=== PATIENT | female | born 1995 | race African-American/Black ===

== ENCOUNTER 2017-07-10 18:55 | Emergency (ER) | payer BC ==
[~2017-07-10] VITALS: Ht 167.6 cm; Wt 100.0 kg
[~2017-07-10 18:55] MED LIST: AMOXICILLIN500 MG OR; AMOXICILLIN500 MG PO; MOTRIN400 MG PO; NO MEDS; ZOFRAN4 MG PO
[2017-07-10 19:53] VITALS: BP 139/78
[2017-07-10] MEDS ORDERED: ULTRAM50 M1 PO (20:37)
== END 2017-07-10 20:45 | disposition home or self-care (01) | DRG 563 ==
LOC: ED 18:55
DX: S83.91XA Sprain of unspecified site of right knee, initial encounter (principal); X50.1XXA Overexertion from prolonged static or awkward postures, initial encounter

== ENCOUNTER 2018-06-09 08:28 | Emergency (ER) | payer OTHER ==
[~2018-06-09] VITALS: Ht 162.6 cm; Wt 98.0 kg
[~2018-06-09 08:28] MED LIST changes: +ULTRAM50 M1 PO
[2018-06-09] MEDS ORDERED: BACTRIM DS1 TAB PO (08:45)
[2018-06-09 08:50] VITALS: BP 138/78
== END 2018-06-09 08:54 | disposition home or self-care (01) | DRG 603 ==
LOC: ED 08:28
DX: L02.424 Furuncle of left upper limb (principal)

== ENCOUNTER 2018-06-29 16:36 | Emergency (ER) | payer OTHER ==
[~2018-06-29] VITALS: Ht 165.1 cm; Wt 95.9 kg
[~2018-06-29 16:36] MED LIST changes: +BACTRIM DS1 TAB PO
[2018-06-29 17:44] LABS: HEMATOCRIT 39.3 % (37.0-47.0); HEMOGLOBIN 12.6 g/dl (12.0-16.0); IMMATURE GRANULOCYTES 0.2 % (0.0-5.0); MEAN CELL VOLUME 84.5 fL CALC (80.0-100.0); MEAN CORPUSCULAR HGB 27.1 pG CALC (26.0-32.0); MEAN CORPUSCULAR HGB CONC 32.1 g/L CALC (32.0-36.0); NEUT# 3.57 thou/uL (2.00-7.15); RED BLOOD COUNT 4.65 mill/uL (4.20-5.60); RED CELL DISTRI WIDTH 14.6 % (11.5-15.5)
[2018-06-29 17:55] LABS: BARBITURATES NEGATIVE (NEGATIVE); COCAINE NEGATIVE (NEGATIVE); METHADONE NEGATIVE (NEGATIVE); OXCYCODONE NEGATIVE (NEGATIVE); TETRAHYDROCANNABIONOL NEGATIVE (NEGATIVE); TRICYLIC ANTIDEPRESSANTS NEGATIVE (NEGATIVE); URINE BILIRUBIN - DIPSTICK NEGATIVE (NEGATIVE); URINE BLOOD DIPSTICK NEGATIVE (NEGATIVE); URINE COLOR YELLOW; URINE GLUCOSE - DIPSTICK NEGATIVE (NEGATIVE); URINE KETONE NEGATIVE (NEGATIVE); URINE LEUK ESTERASE NEGATIVE (NEGATIVE); URINE NITRITE - DIPSTICK NEGATIVE (Negative); URINE PH 6.5 (4.5-8.0); URINE PROTEIN - DIPSTICK NEGATIVE (NEG-TRACE)
[2018-06-29 17:57] LABS: ALBUMIN 4.7 g/dL (3.2-5.0); ANION GAP 16 (6-22 (CALC)); BILIRUBIN, TOTAL 0.4 mg/dL (0.0-1.4); BUN 17 mg/dL (7-17); BUN/CREATININE RATIO 16 (12-20 (CALC)); CARBON DIOXIDE 23 mmol/l (22-30); CHLORIDE 107 mmol/l (95-108); GFR > 60 ML/MIN (>=60 (CALC)); GFR FOR AFR.AMER. > 60 ML/MIN (>=60 (CALC)); SGOT/AST 25 u/l (14-36); SODIUM 143 mmol/l (137-146); TOTAL PROTEIN 7.7 g/dL (6.3-8.2)
[2018-06-29 17:58] LABS: ALKALINE PHOSPHATASE 61 u/l (38-126)
[2018-06-29 18:09] LABS: MYOGLOBIN 30 ng/mL (0 - 62)
[2018-06-29 18:26] LABS: TSH, 3RD GENERATION 1.49 uIU/mL (0.47 - 4.68)
[2018-06-29 18:59] VITALS: BP 127/77
== END 2018-06-29 19:08 | disposition home or self-care (01) | DRG 310 ==
LOC: ED 16:36
PROVIDERS: Emergency Medicine
DX: R00.0 Tachycardia, unspecified (principal)

== ENCOUNTER 2018-06-30 23:42 | Emergency (ER) | payer OTHER ==
[~2018-06-30] VITALS: Ht 165.1 cm; Wt 94.1 kg
[2018-07-01 01:26] VITALS: BP 111/70
== END 2018-07-01 01:26 | disposition home or self-care (01) | DRG 310 ==
LOC: ED 23:42
DX: R00.2 Palpitations (principal)

== ENCOUNTER 2019-12-17 17:14 | Emergency (ER) | payer OTHER ==
[~2019-12-17] VITALS: Ht 165.1 cm; Wt 100.0 kg
[2019-12-17] MEDS ORDERED: IBUPROFEN600 MG PO (18:53)
[2019-12-17 19:20] VITALS: BP 136/89
[2019-12-17] MEDS ORDERED: no meds (19:21)
== END 2019-12-17 19:20 | disposition home or self-care (01) | DRG 563 ==
LOC: ED 17:14
DX: S63.602A Unspecified sprain of left thumb, initial encounter (principal); X58.XXXA Exposure to other specified factors, initial encounter

== ENCOUNTER 2020-04-08 10:02 | Emergency (ER) | payer OTHER ==
[~2020-04-08] VITALS: Ht 165.1 cm; Wt 110.0 kg
[~2020-04-08 10:02] MED LIST changes: +IBUPROFEN600 MG PO; +no meds
[2020-04-08] MEDS ORDERED: FLEXERIL5 M1 PO (11:03)
[2020-04-08] MEDS ORDERED: NAPROXEN DR500 MG PO (11:03)
[2020-04-08 11:38] VITALS: BP 126/86
== END 2020-04-08 11:38 | disposition home or self-care (01) | DRG 552 ==
LOC: ED 10:02
DX: S16.1XXA Strain of muscle, fascia and tendon at neck level, initial encounter (principal); X58.XXXA Exposure to other specified factors, initial encounter; Z20.822 Contact with and (suspected) exposure to COVID-19

== ENCOUNTER 2020-07-20 16:58 | Emergency (ER) | payer OTHER ==
[~2020-07-20 16:58] MED LIST changes: +FLEXERIL5 M1 PO; +NAPROXEN DR500 MG PO
[2020-07-20] MEDS ORDERED: ZYRTEC10 MG PO (18:23)
[2020-07-20 19:05] VITALS: BP 134/78
== END 2020-07-20 19:11 | disposition home or self-care (01) | DRG 153 ==
LOC: ED 16:58
DX: J06.9 Acute upper respiratory infection, unspecified (principal); F41.9 Anxiety disorder, unspecified; Z20.822 Contact with and (suspected) exposure to COVID-19

== ENCOUNTER 2022-11-29 09:09 | Emergency (ER) | payer OTHER ==
[~2022-11-29] VITALS: Ht 167.6 cm; Wt 107.0 kg
[2022-11-29] VITALS (19 sets, daily range): BP systolic 119–144; BP diastolic 79–94
[~2022-11-29 09:09] MED LIST changes: +ZYRTEC10 MG PO
[2022-11-29 10:01] LABS: BASO% 0.4 % (0-3); EOS% 1.3 % (0-8); HEMATOCRIT 41.9 % (37.0-47.0); HEMOGLOBIN 13.8 g/dl (12.0-16.0); LYMPH% 45.1 % (15-41); MEAN CELL VOLUME 89.5 fL CALC (80.0-100.0); MEAN CORPUSCULAR HGB 29.5 pG CALC (26.0-32.0); MEAN CORPUSCULAR HGB CONC 32.9 g/dL CAL (32.0-36.0); MONO% 7.3 % (2-13); NEUT# 2.12 thou/uL (2.00-7.15); NEUT% 45.9 % (42-76); RED BLOOD COUNT 4.68 mill/uL (4.20-5.60); RED CELL DISTRI WIDTH 13.1 % (11.5-15.5)
[2022-11-29 10:11] LABS: URINE BILIRUBIN - DIPSTICK Negative (NEGATIVE); URINE GLUCOSE - DIPSTICK Negative (NEGATIVE); URINE KETONE Trace mg/dL (NEGATIVE); URINE LEUK ESTERASE Negative (NEGATIVE); URINE NITRITE - DIPSTICK Negative (Negative); URINE PH 5.5 (4.5-8.0); URINE PROTEIN - DIPSTICK Negative (NEG-TRACE); URINE SPECIFIC GRAVITY 1.025
[2022-11-29 10:13] LABS: ALBUMIN 4.6 g/dL (3.2-5.0); ALKALINE PHOSPHATASE 70 u/l (38-126); ANION GAP 13 (6-22 (CALC)); BILIRUBIN, TOTAL 0.5 mg/dL (0.02-1.3); BUN 10 mg/dL (7-17); BUN/CREATININE RATIO 12 (12-20 (CALC)); CARBON DIOXIDE 25 mmol/l (22-30); CHLORIDE 105 mmol/l (95-108); CREATININE 0.9 mg/dL (0.5-1.0); GFR FOR AFR.AMER. > 60 ML/MIN (>=60 (CALC)); GFR OTHER RACES > 60 ML/MIN (>=60 (CALC)); POTASSIUM 3.6 mmol/l (3.5-5.1); SGOT/AST 26 u/l (14-36); SODIUM 139 mmol/l (137-146); TOTAL PROTEIN 7.6 g/dL (6.3-8.2)
[2022-11-29 10:14] LABS: URINE BLOOD DIPSTICK Trace (NEGATIVE); URINE COLOR Yellow
== END 2022-11-29 14:00 | disposition home or self-care (01) | DRG 880 ==
LOC: ED 09:09
PROVIDERS: Family Medicine
DX: F41.9 Anxiety disorder, unspecified (principal)